=== PATIENT | male | born 1960 | race Caucasian/White ===

== ENCOUNTER → 2016-12-23 | Outpatient (CLI) | payer MEDICARE, MEDICAID | LOC: MHCPAIN 10:48 | DX: G89.29 Other chronic pain (principal); M47.27 Other spondylosis with radiculopathy, lumbosacral region; M47.814 Spondylosis without myelopathy or radiculopathy, thoracic region; Z87.891 Personal history of nicotine dependence | CPT/HCPCS: G0463 ==

== ENCOUNTER → 2017-01-26 | Outpatient (CLI) | payer MEDICARE, MEDICAID | LOC: MHCPAIN 10:05 | DX: G89.29 Other chronic pain (principal); M47.817 Spondylosis without myelopathy or radiculopathy, lumbosacral region; M47.814 Spondylosis without myelopathy or radiculopathy, thoracic region; Z87.891 Personal history of nicotine dependence | CPT/HCPCS: G0463 ==

== ENCOUNTER → 2017-02-11 | Outpatient (CLI) | payer MEDICARE, MEDICAID | LOC: MHCPAIN 09:30 | DX: M47.817 Spondylosis without myelopathy or radiculopathy, lumbosacral region (principal) ==

== ENCOUNTER → 2017-02-17 | Outpatient (CLI) | payer MEDICARE, MEDICAID | LOC: MHCPAIN 09:42 | DX: G89.29 Other chronic pain (principal); M47.817 Spondylosis without myelopathy or radiculopathy, lumbosacral region; M47.814 Spondylosis without myelopathy or radiculopathy, thoracic region | CPT/HCPCS: G0463 ==

== ENCOUNTER → 2017-03-18 | Outpatient (CLI) | payer MEDICARE, MEDICAID | LOC: MHCPAIN 12:35 | DX: M47.817 Spondylosis without myelopathy or radiculopathy, lumbosacral region (principal) ==

== ENCOUNTER → 2017-03-31 | Outpatient (CLI) | payer MEDICARE, MEDICAID | LOC: MHCPAIN 10:08 | DX: G89.29 Other chronic pain (principal); M47.817 Spondylosis without myelopathy or radiculopathy, lumbosacral region; M47.814 Spondylosis without myelopathy or radiculopathy, thoracic region; Z87.891 Personal history of nicotine dependence | CPT/HCPCS: G0463 ==

== ENCOUNTER → 2017-05-03 | Outpatient (CLI) | payer MEDICARE, MEDICAID | LOC: MHCPAIN 09:57 | DX: G89.29 Other chronic pain (principal); M47.817 Spondylosis without myelopathy or radiculopathy, lumbosacral region; M53.3 Sacrococcygeal disorders, not elsewhere classified; M47.814 Spondylosis without myelopathy or radiculopathy, thoracic region | CPT/HCPCS: G0463 ==

== ENCOUNTER → 2017-06-01 | Outpatient (CLI) | payer MEDICARE, MEDICAID | LOC: MHCPAIN 08:48 | DX: G89.29 Other chronic pain (principal); M47.817 Spondylosis without myelopathy or radiculopathy, lumbosacral region; M54.16 Radiculopathy, lumbar region; M53.3 Sacrococcygeal disorders, not elsewhere classified; M47.814 Spondylosis without myelopathy or radiculopathy, thoracic region | CPT/HCPCS: G0463 ==

== ENCOUNTER → 2017-06-02 | Outpatient (CLI) | payer MEDICARE, MEDICAID | LOC: MHCPAIN 07:28 | DX: M47.817 Spondylosis without myelopathy or radiculopathy, lumbosacral region (principal) | CPT/HCPCS: J1100; J2250; J3010 ==

== ENCOUNTER → 2017-06-10 | Outpatient (CLI) | payer MEDICARE, MEDICAID | LOC: MHCPAIN 07:28 | DX: M47.817 Spondylosis without myelopathy or radiculopathy, lumbosacral region (principal) | CPT/HCPCS: J1100; J2250; J3010 ==

== ENCOUNTER → 2017-07-02 | Outpatient (CLI) | payer MEDICARE, MEDICAID | LOC: MHCPAIN 08:56 | DX: G89.29 Other chronic pain (principal); M47.817 Spondylosis without myelopathy or radiculopathy, lumbosacral region; M54.16 Radiculopathy, lumbar region; M53.3 Sacrococcygeal disorders, not elsewhere classified; M47.814 Spondylosis without myelopathy or radiculopathy, thoracic region | CPT/HCPCS: G0463 ==

== ENCOUNTER → 2017-08-04 | Outpatient (CLI) | payer MEDICARE, MEDICAID | LOC: MHCPAIN 10:10 | DX: G89.29 Other chronic pain (principal); M47.817 Spondylosis without myelopathy or radiculopathy, lumbosacral region; M54.16 Radiculopathy, lumbar region; M53.3 Sacrococcygeal disorders, not elsewhere classified; M47.814 Spondylosis without myelopathy or radiculopathy, thoracic region | CPT/HCPCS: G0463 ==

== ENCOUNTER → 2017-09-06 | Outpatient (CLI) | payer MEDICARE, MEDICAID | LOC: MHCPAIN 09:41 | DX: G89.29 Other chronic pain (principal); M47.817 Spondylosis without myelopathy or radiculopathy, lumbosacral region; M53.3 Sacrococcygeal disorders, not elsewhere classified; M47.814 Spondylosis without myelopathy or radiculopathy, thoracic region | CPT/HCPCS: G0463 ==

== ENCOUNTER → 2017-11-08 | Outpatient (CLI) | payer MEDICARE, MEDICAID | LOC: MHCPAIN 09:57 | DX: G89.29 Other chronic pain (principal); M47.817 Spondylosis without myelopathy or radiculopathy, lumbosacral region; M53.3 Sacrococcygeal disorders, not elsewhere classified; M47.814 Spondylosis without myelopathy or radiculopathy, thoracic region | CPT/HCPCS: G0463 ==

== ENCOUNTER → 2018-01-24 | Outpatient (CLI) | payer MEDICARE, MEDICAID | LOC: MHCPAIN 08:55 | DX: G89.29 Other chronic pain (principal); M47.817 Spondylosis without myelopathy or radiculopathy, lumbosacral region; M53.3 Sacrococcygeal disorders, not elsewhere classified | CPT/HCPCS: G0463 ==

== ENCOUNTER → 2018-01-31 | Outpatient (CLI) | payer MEDICARE, MEDICAID | LOC: MHCPAIN 08:55 | DX: G89.29 Other chronic pain (principal); M47.817 Spondylosis without myelopathy or radiculopathy, lumbosacral region; M53.3 Sacrococcygeal disorders, not elsewhere classified; M47.814 Spondylosis without myelopathy or radiculopathy, thoracic region | CPT/HCPCS: G0463 ==

== ENCOUNTER → 2018-05-02 | Outpatient (CLI) | payer MEDICARE, MEDICAID | LOC: MHCPAIN 09:27 | DX: G89.29 Other chronic pain (principal); M47.817 Spondylosis without myelopathy or radiculopathy, lumbosacral region; M54.16 Radiculopathy, lumbar region; M53.3 Sacrococcygeal disorders, not elsewhere classified; M47.814 Spondylosis without myelopathy or radiculopathy, thoracic region | CPT/HCPCS: G0463 ==

== ENCOUNTER → 2018-08-01 | Outpatient (CLI) | payer MEDICARE, MEDICAID | LOC: MHCPAIN 09:05 | DX: G89.29 Other chronic pain (principal); M47.817 Spondylosis without myelopathy or radiculopathy, lumbosacral region; M54.16 Radiculopathy, lumbar region; M53.3 Sacrococcygeal disorders, not elsewhere classified; M47.814 Spondylosis without myelopathy or radiculopathy, thoracic region | CPT/HCPCS: G0463 ==

== ENCOUNTER → 2018-10-31 | Outpatient (CLI) | payer MEDICARE, MEDICAID | LOC: MHCPAIN 11:12 | DX: G89.29 Other chronic pain (principal); M47.817 Spondylosis without myelopathy or radiculopathy, lumbosacral region; M53.3 Sacrococcygeal disorders, not elsewhere classified; M47.814 Spondylosis without myelopathy or radiculopathy, thoracic region | CPT/HCPCS: G0463 ==

== ENCOUNTER → 2019-01-30 | Outpatient (CLI) | payer MEDICARE, MEDICAID | LOC: MHCPAIN 10:36 | DX: G89.29 Other chronic pain (principal); M47.817 Spondylosis without myelopathy or radiculopathy, lumbosacral region; M53.3 Sacrococcygeal disorders, not elsewhere classified; M47.814 Spondylosis without myelopathy or radiculopathy, thoracic region | CPT/HCPCS: G0463 ==

== ENCOUNTER → 2019-05-01 | Outpatient (CLI) | payer MEDICARE | LOC: MHCPAIN 10:08 | DX: M54.5 Low back pain (principal); M53.3 Sacrococcygeal disorders, not elsewhere classified | CPT/HCPCS: G0463 ==

== ENCOUNTER → 2019-08-22 | Outpatient (CLI) | payer MEDICARE | LOC: MHCPAIN 09:36 | DX: M47.817 Spondylosis without myelopathy or radiculopathy, lumbosacral region (principal); M54.5 Low back pain; M54.6 Pain in thoracic spine; M47.814 Spondylosis without myelopathy or radiculopathy, thoracic region; G89.29 Other chronic pain | CPT/HCPCS: G0463 ==

== ENCOUNTER → 2019-11-21 | Outpatient (CLI) | payer MEDICARE | LOC: MHCPAIN 09:46 | DX: M47.817 Spondylosis without myelopathy or radiculopathy, lumbosacral region (principal); M54.5 Low back pain; M53.3 Sacrococcygeal disorders, not elsewhere classified; G89.29 Other chronic pain; M47.814 Spondylosis without myelopathy or radiculopathy, thoracic region | CPT/HCPCS: G0463 ==

== ENCOUNTER → 2020-02-20 | Outpatient (CLI) | payer MEDICARE | LOC: MHCPAIN 09:49 | DX: M47.817 Spondylosis without myelopathy or radiculopathy, lumbosacral region (principal); M47.814 Spondylosis without myelopathy or radiculopathy, thoracic region; M54.5 Low back pain; G89.29 Other chronic pain | CPT/HCPCS: G0463 ==

== ENCOUNTER → 2020-05-21 | Outpatient (CLI) | payer MEDICARE | LOC: MHCPAIN 09:42 | DX: M47.816 Spondylosis without myelopathy or radiculopathy, lumbar region (principal); M53.3 Sacrococcygeal disorders, not elsewhere classified; G89.29 Other chronic pain | CPT/HCPCS: G0463 ==

== ENCOUNTER → 2020-08-13 | Outpatient (CLI) | payer MEDICARE | LOC: MHCPAIN 09:44 | DX: M47.816 Spondylosis without myelopathy or radiculopathy, lumbar region (principal); M47.814 Spondylosis without myelopathy or radiculopathy, thoracic region; G89.29 Other chronic pain | CPT/HCPCS: G0463 ==

== ENCOUNTER → 2020-11-13 | Outpatient (CLI) | payer MEDICARE | LOC: MHCPAIN 09:40 | DX: M47.817 Spondylosis without myelopathy or radiculopathy, lumbosacral region (principal); M79.18 Myalgia, other site; M53.3 Sacrococcygeal disorders, not elsewhere classified; M54.5 Low back pain | CPT/HCPCS: G0463 ==

== ENCOUNTER → 2021-02-10 | Outpatient (CLI) | payer MEDICARE | LOC: MHCPAIN 09:43 | DX: M54.6 Pain in thoracic spine (principal); M54.50 Low back pain, unspecified; M79.18 Myalgia, other site | CPT/HCPCS: G0463 ==

== ENCOUNTER → 2021-03-24 | Outpatient (CLI) | payer MEDICARE | LOC: MHCPAIN 10:58 | DX: M79.18 Myalgia, other site (principal); M54.6 Pain in thoracic spine; M54.50 Low back pain, unspecified; M47.896 Other spondylosis, lumbar region | CPT/HCPCS: G0463; J1040 ==

== ENCOUNTER → 2021-05-12 | Outpatient (CLI) | payer MEDICARE | LOC: MHCPAIN 09:37 | DX: M54.6 Pain in thoracic spine (principal); M54.50 Low back pain, unspecified; M79.18 Myalgia, other site | CPT/HCPCS: G0463 ==

== ENCOUNTER → 2021-08-25 | Outpatient (CLI) | payer MEDICARE | LOC: MHCPAIN 09:38 | DX: M54.6 Pain in thoracic spine (principal); M54.50 Low back pain, unspecified; M47.817 Spondylosis without myelopathy or radiculopathy, lumbosacral region; M47.814 Spondylosis without myelopathy or radiculopathy, thoracic region | CPT/HCPCS: G0463 ==

== ENCOUNTER → 2021-10-15 | Outpatient (CLI) | payer OTHER, MEDICARE | LOC: COL.RAD 12:10 | DX: M19.021 Primary osteoarthritis, right elbow (principal); M77.11 Lateral epicondylitis, right elbow ==

== ENCOUNTER → 2021-11-24 | Outpatient (CLI) | payer MEDICARE | LOC: MHCPAIN 09:56 | DX: M54.6 Pain in thoracic spine (principal); M54.59 Other low back pain; M47.814 Spondylosis without myelopathy or radiculopathy, thoracic region | CPT/HCPCS: G0463 ==

== ENCOUNTER → 2021-11-26 | Outpatient (CLI) | payer MEDICARE | LOC: MHCPAIN 13:56 | DX: M25.521 Pain in right elbow (principal); M77.11 Lateral epicondylitis, right elbow | CPT/HCPCS: G0463 ==

== ENCOUNTER → 2022-01-13 | Outpatient (CLI) | payer OTHER, MEDICARE | LOC: MHCPAIN 10:58 | DX: M77.11 Lateral epicondylitis, right elbow (principal); M25.521 Pain in right elbow | CPT/HCPCS: G0463 ==

== ENCOUNTER → 2022-04-15 | Outpatient (CLI) | payer OTHER | LOC: MHCPAIN 10:06 | DX: M77.11 Lateral epicondylitis, right elbow (principal) | CPT/HCPCS: G0463 ==

== ENCOUNTER → 2022-05-26 | Outpatient (CLI) | payer MEDICARE | LOC: MHCPAIN 09:45 | DX: M54.50 Low back pain, unspecified (principal); M54.6 Pain in thoracic spine; M47.897 Other spondylosis, lumbosacral region; G89.29 Other chronic pain | CPT/HCPCS: G0463 ==

== ENCOUNTER → 2022-11-25 | Outpatient (CLI) | payer MEDICARE | LOC: MHCPAIN 10:56 | DX: M54.50 Low back pain, unspecified (principal); M54.6 Pain in thoracic spine; G89.29 Other chronic pain | CPT/HCPCS: G0463 ==

== ENCOUNTER → 2023-04-20 | Outpatient (CLI) | payer MEDICARE, OTHER | LOC: MHCPAIN 11:58 | DX: M54.6 Pain in thoracic spine (principal); M54.50 Low back pain, unspecified; M79.18 Myalgia, other site; G89.29 Other chronic pain | CPT/HCPCS: G0463 ==

== ENCOUNTER → 2023-06-29 | Outpatient (CLI) | payer MEDICARE | LOC: MHCPAIN 10:11 | DX: M47.814 Spondylosis without myelopathy or radiculopathy, thoracic region (principal); M47.816 Spondylosis without myelopathy or radiculopathy, lumbar region; M79.18 Myalgia, other site | CPT/HCPCS: G0463 ==

== ENCOUNTER → 2023-10-19 | Outpatient (CLI) | payer MEDICARE | LOC: MHCPAIN 12:19 | DX: M47.817 Spondylosis without myelopathy or radiculopathy, lumbosacral region (principal); M54.50 Low back pain, unspecified; M54.6 Pain in thoracic spine; M79.18 Myalgia, other site | CPT/HCPCS: G0463 ==

== ENCOUNTER → 2023-12-14 | Outpatient (CLI) | payer MEDICARE | LOC: MHCPAIN 12:19 | DX: M47.815 Spondylosis without myelopathy or radiculopathy, thoracolumbar region (principal); M54.6 Pain in thoracic spine; M54.50 Low back pain, unspecified | CPT/HCPCS: G0463 ==

== ENCOUNTER → 2024-02-15 | Outpatient (CLI) | payer MEDICARE | LOC: MHCPAIN 12:26 | DX: M47.817 Spondylosis without myelopathy or radiculopathy, lumbosacral region (principal); M54.6 Pain in thoracic spine; M54.50 Low back pain, unspecified; G89.29 Other chronic pain | CPT/HCPCS: G0463 ==